=== PATIENT | female | born 1960 | race Caucasian/White ===

== ENCOUNTER 2016-08-11 13:47 | Emergency (ER) | payer BC, OTHER ==
[2016-08-11 16:28] LABS: ANION GAP 14 MEQ/L (8-16); BLOOD UREA NITROGEN 23 MG/DL (7-18); CALCIUM LEVEL 9.5 MG/DL (8.5-10.1); CARBON DIOXIDE LEVEL 21 MEQ/L (21-32); CHLORIDE LEVEL 102 MEQ/L (98-107); CREATININE FOR GFR 0.98 MG/DL (0.55-1.02); GLOMERULAR FILTRATION RATE > 60.0 (>51); GLUCOSE, FASTING 106 MG/DL (70-105); POTASSIUM SERUM 3.7 MEQ/L (3.5-5.1); SODIUM LEVEL 137 MEQ/L (136-145)
--- NOTE | 2016-08-11 16:51 | REP ---
Left upper extremity emergency duplex venous ultrasound: History: Left arm swelling, question venous thrombosis. Findings: The left internal jugular vein, left subclavian vein, axillary vein, brachial veins, cephalic and basilic veins are anechoic and compressible in the left upper extremity. Color flow imaging is homogeneous. Spectral Doppler interrogation is unremarkable. There is no evidence of left upper extremity venous thrombosis. Impression: Negative left upper extremity venous ultrasound. No evidence of venous thrombosis. Signed by Larry Morris MD 08/11/2016 05:03 P
[2016-08-11] MEDS ORDERED: CLINDAMYCIN 600 MG/50 ML PREMIX BAG As Ordered ONE (16:53)
[2016-08-11 17:14] LABS: BASO % 0.4 % (0.0-1.0); EOS % 0.2 % (0.0-3.0); LARGE UNSTAINED CELL # 0.1 K/mm3 (0.0-0.4); LARGE UNSTAINED CELL % 1.2 % (0.0-4.0); LYMPH # 0.7 K/mm3 (1.5-4.5); LYMPH % 8.1 % (24.0-44.0); MEAN CORPUSCULAR HEMOGLOBIN 32.2 pg (27.0-33.0); MEAN CORPUSCULAR HGB CONC 36.4 g/dl (32.0-36.5); MEAN CORPUSCULAR VOLUME 88.5 fl (80.0-96.0); MONO # 0.3 K/mm3 (0.0-0.8); MONO % 3.2 % (0.0-5.0); NEUTROPHILS # 7.1 K/mm3 (1.8-7.7); NEUTROPHILS % 86.9 % (36.0-66.0); PLATELET COUNT, AUTOMATED 191 k/mm3 (150-450); RED CELL DISTRIBUTION WIDTH 11.9 % (11.5-14.5); WHITE BLOOD COUNT 8.2 K/mm3 (4.0-10.0)
--- NOTE | 2016-08-11 17:58 | EDDOCDS ---
Physician Documentation [facility] Name: Shauna Casarez Age: 56 yrs Sex: Female : 1960 Arrival Date: 08/11/2016 Time: 13:47 Bed TR7 Private MD: Nusrat Lerner PA-C Disposition: 08/11/16 17:43 Discharged to Home/Self Care. Impression: Fever presenting with conditions classified elsewhere, Acute pharyngitis, unspecified, Cellulitis of left upper limb. - Condition is Stable. - Discharge Instructions: Cellulitis, Pharyngitis. - Prescriptions for Clindamycin HCl 300 mg Oral Capsule - take 1 capsule by ORAL route every 6 hours; 40 capsule. magic mouthwash Mucous Membrane Solution - as directed 5 milliliters by ORAL route 4 times per day As needed GARGLE, SWISH, SPIT. MAALOX, VISCOUS LIDOCAINE, LIQUID BENADRYL. 1:1:1; 237 milliliter. - Medication Reconciliation, Local Pharmacy Hours form. - Follow up: Emergency Department; When: As needed; Reason: Worsening of conditions. Follow up: Private Physician; When: 2 - 3 days; Reason: Wound/Symptom Recheck, Recheck today's complaints, Continuance of care. - Problem is new. - Symptoms have improved. Historical: - Allergies: no known allergies; - Home Meds: 1. Zoloft 50 mg Oral tab 1 tab once daily (Last dose: 08/10/2016 20:00) 2. Tylenol 325 mg Oral tab 2 tabs as needed (Last dose: 08/11/2016 13:30) - PMHx: Breast cancer; - PSHx: Appendectomy; Tonsillectomy; Mastectomy 1998; - Social history: Smoking status: Patient states former smoker of tobacco. No barriers to communication noted, The patient speaks fluent Welsh. - Family history: No immediate family members are acutely ill. - : The pt / caregiver states he / she is not on anticoagulants. Home medication list is obtained from the patient. - Exposure Risk Screening:: None identified. Vital Signs: 08/11 13:48 BP 92 / 64; Pulse 101; Resp 18 S; Temp 100.8(O); Pulse Ox 100% on R/A; Weight 74.84 kg gr2 / 164.99 lbs (R); Height 5 ft. 9 in. (175.26 cm) (R); Pain 8/10; 15:38 Temp 99.7(O); mdr 17:51 BP 115 / 77; Pulse 85; Resp 18; Temp 99.9(TE); Pulse Ox 100% on R/A; Pain 6/10; mdr 13:48 Body Mass Index 24.37 (74.84 kg, 175.26 cm) gr2 MDM: 14:01 Strep Screen, Nursing ordered. dt4 15:45 Financial registration complete. lg 15:46 IV Saline Lock ordered. dt4 15:46 NS 0.9% 1000 ml IV at bolus once ordered. dt4 15:46 CBC with Diff Ordered. EDMS 15:46 Basic Metabolic Profile Ordered. EDMS 15:46 Sed Rate Ordered. EDMS 15:46 CRP Ordered. EDMS 15:46 US Upper Extremity R/O DVT Ordered. EDMS 15:50 GATS (NEGATIVE STREP SCREEN) Ordered. EDMS 16:50 Clindamycin 600 mg IVPB once over 30 mins; dilute in 50mL of NS or D5W ordered. dt4 Administered Medications: 16:10 Drug: NS 0.9% 1000 ml [sodium chloride 0.9 % intravenous solution] Route: IV; Rate: srm bolus; Site: right hand; 16:59 Drug: Clindamycin 600 mg [clindamycin 600 mg/50 mL in 5 % dextrose intravenous dw piggyback] Route: IVPB; Infused Over: 30 mins; Site: right hand; Signatures: Dispatcher [employer] EDMS Dread Pollard RN RN [facility] Lashon Hunter, Alexis Reg Gianna Davis PA-C PA-C dt4 Alvaro Fraser RN RN mb9 Lizet Boykin RN srm MTDD
--- NOTE | 2016-08-11 17:58 | EDDOCDS ---
Nurse's Notes [facility] Name: Shauna Casarez Age: 56 yrs Sex: Female : 1960 Arrival Date: 08/11/2016 Time: 13:47 Bed TR7 Private MD: Nusrat Lerner PA-C Diagnosis: Fever presenting with conditions classified elsewhere;Acute pharyngitis, unspecified;Cellulitis of left upper limb Presentation: 08/11 13:51 Presenting complaint: Patient states: Multiple complaints, sore throat for 3-4 days, dwg also redness, pain and swelling to left arm from just above left elbow down to left wrist, for 2 days. Adult Sepsis Screening: The patient does not have new or worsening altered mentation. Patient's respiratory rate is less than 22. Systolic blood pressure is less than or equal to 100 (1 point). Patient has a qSOFA score of 1- Negative Sepsis Screen. Suicide/Homicide risk assessment- the patient denies having any suicidal and/or homicidal ideations and does not present with any other emotional, behavioral or mental health complaints. 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 Transition of care: patient was not received from another setting of care. 13:51 Acuity: JUNE Level 3 dwg 13:51 Method Of Arrival: Walkin/Carried/Asstd dwg Triage Assessment: 13:55 General: Appears in no apparent distress. Pain: Pain currently is 5 out of 10 on a pain dwg scale. HIV screening NA for this visit Offered previously. Historical: - Allergies: no known allergies; - Home Meds: 1. Zoloft 50 mg Oral tab 1 tab once daily (Last dose: 08/10/2016 20:00) 2. Tylenol 325 mg Oral tab 2 tabs as needed (Last dose: 08/11/2016 13:30) - PMHx: Breast cancer; - PSHx: Appendectomy; Tonsillectomy; Mastectomy 1998; - Social history: Smoking status: Patient states former smoker of tobacco. No barriers to communication noted, The patient speaks fluent Azeri. - Family history: No immediate family members are acutely ill. - : The pt / caregiver states he / she is not on anticoagulants. Home medication list is obtained from the patient. - Exposure Risk Screening:: None identified. Screenin:55 Screening information is obtained from the patient. Fall risk: No risks identified. mb9 Assistance ADL's: requires no assistance with activities of daily living. Abuse/DV Screen: The patient / caregiver reports he/she is: not in a situation that causes fear, pain or injury. Nutritional screening: No deficits noted. Advance Directives: There is no active DNR order. home support is adequate. Assessment: 16:03 General: Appears in no apparent distress, Behavior is appropriate for age, cooperative. srm Respiratory: No deficits noted. GI: No deficits noted. Musculoskeletal: Circulation, motion, and sensation intact Capillary refill < 3 seconds in left fingers redness and swelling to left forearm Signs and Symptoms of Compartment Syndrome:. Vital Signs: 13:48 BP 92 / 64; Pulse 101; Resp 18 S; Temp 100.8(O); Pulse Ox 100% on R/A; Weight 74.84 kg gr2 (R); Height 5 ft. 9 in. (175.26 cm) (R); Pain 8/10; 15:38 Temp 99.7(O); mdr 17:51 BP 115 / 77; Pulse 85; Resp 18; Temp 99.9(TE); Pulse Ox 100% on R/A; Pain 6/10; mdr 13:48 Body Mass Index 24.37 (74.84 kg, 175.26 cm) gr2 Vitals: 13:48 Log In Time: August 11, 2016 at 13:48. gr2 15:49 Strep Screen is obtained and tested: Negative, a GATSNEG culture is ordered in [facility] and sent. ED Course: 13:48 Patient visited by Suha Canseco. gr2 13:48 Nusrat Lerner is Private Physician. gr2 13:48 Patient moved to Waiting gr2 13:49 Patient visited by Suha Canseco. gr2 13:49 Patient moved to Pre RCE gr2 13:54 Triage Initiated dwg 15:14 Patient moved to Triage 3 mdr 15:30 Gianna Davis PA-C is PHCP. dt4 15:30 Eduardo Yi MD is Attending Physician. dt4 15:30 Patient visited by Gianna Davis PA-C. dt4 15:39 Patient visited by Nathan Deleon PCA. mdr 16:04 Patient visited by Lizet Boykin, CONNIE. srm 16:04 Patient moved to PR1 srm 16:04 Inserted saline lock: 20 gauge in right hand and blood collected. srm 16:04 CRP Sent. srm 16:04 Sed Rate Sent. srm 16:04 Basic Metabolic Profile Sent. srm 16:04 CBC with Diff Sent. srm 16:08 Patient moved to Ultrasound en 16:39 Patient moved to PD srm 16:55 Patient visited by Gianna Davis PA-C. dt4 17:27 US Upper Extremity R/O DVT Returned. EDMS 17:52 Patient visited by Nathan Deleon PCA. mdr 17:55 Patient moved to TR7 mb9 17:55 The patient / caregiver is instructed regarding the plan of care and ED course. mb9 17:55 Discontinued IV lock intact, bleeding controlled, pressure dressing applied, No mb9 redness/swelling at site. No procedures done that require assistance. Administered Medications: 16:10 Drug: NS 0.9% 1000 ml [sodium chloride 0.9 % intravenous solution] Route: IV; Rate: srm bolus; Site: right hand; 16:59 Drug: Clindamycin 600 mg [clindamycin 600 mg/50 mL in 5 % dextrose intravenous dwg piggyback] Route: IVPB; Infused Over: 30 mins; Site: right hand; Order Results: Lab Order: CBC with Diff; SPEC'M 08/11/16 16:01 Test: WHITE BLOOD COUNT; Value: 8.2; Range: 4.0-10.0; Units: K/mm3; Status: F Test: RED BLOOD COUNT; Value: 4.71; Range: 4.00-5.40; Units: M/mm3; Status: F Test: HEMOGLOBIN; Value: 15.1; Range: 12.0-16.0; Units: g/dl; Status: F Test: HEMATOCRIT; Value: 41.6; Range: 36.0-47.0; Units: %; Status: F Test: MEAN CORPUSCULAR VOLUME; Value: 88.5; Range: 80.0-96.0; Units: fl; Status: F Test: MEAN CORPUSCULAR HEMOGLOBIN; Value: 32.2; Range: 27.0-33.0; Units: pg; Status: F Test: MEAN CORPUSCULAR HGB CONC; Value: 36.4; Range: 32.0-36.5; Units: g/dl; Status: F Test: RED CELL DISTRIBUTION WIDTH; Value: 11.9; Range: 11.5-14.5; Units: %; Status: F Test: PLATELET COUNT, AUTOMATED; Value: 191; Range: 150-450; Units: k/mm3; Status: F Test: NEUTROPHILS %; Value: 86.9; Range: 36.0-66.0; Abnormal: Above high normal; Units: %; Status: F Test: LYMPH %; Value: 8.1; Range: 24.0-44.0; Abnormal: Below low normal; Units: %; Status: F Test: MONO %; Value: 3.2; Range: 0.0-5.0; Units: %; Status: F Test: EOS %; Value: 0.2; Range: 0.0-3.0; Units: %; Status: F Test: BASO %; Value: 0.4; Range: 0.0-1.0; Units: %; Status: F Test: LARGE UNSTAINED CELL %; Value: 1.2; Range: 0.0-4.0; Units: %; Status: F Test: NEUTROPHILS #; Value: 7.1; Range: 1.8-7.7; Units: K/mm3; Status: F Test: LYMPH #; Value: 0.7; Range: 1.5-4.5; Abnormal: Below low normal; Units: K/mm3; Status: F Test: MONO #; Value: 0.3; Range: 0.0-0.8; Units: K/mm3; Status: F Test: EOS #; Value: 0.0; Range: 0.0-0.50; Units: K/mm3; Status: F Test: BASO #; Value: 0.0; Range: 0.0-0.2; Units: K/mm3; Status: F Test: LARGE UNSTAINED CELL #; Value: 0.1; Range: 0.0-0.4; Units: K/mm3; Status: F Lab Order: Basic Metabolic Profile; SPEC'M 08/11/16 16:01 Test: GLUCOSE, FASTING; Value: 106; Range: 70-105; Abnormal: Above high normal; Units: MG/DL; Status: F Test: BLOOD UREA NITROGEN; Value: 23; Range: 7-18; Abnormal: Above high normal; Units: MG/DL; Status: F Test: CREATININE FOR GFR; Value: 0.98; Range: 0.55-1.02; Units: MG/DL; Status: F Test: GLOMERULAR FILTRATION RATE; Value: > 60.0; Range: >51; Status: F Test: SODIUM LEVEL; Value: 137; Range: 136-145; Units: MEQ/L; Status: F Test: POTASSIUM SERUM; Value: 3.7; Range: 3.5-5.1; Units: MEQ/L; Status: F Test: CHLORIDE LEVEL; Value: 102; Range: 98-107; Units: MEQ/L; Status: F Test: CARBON DIOXIDE LEVEL; Value: 21; Range: 21-32; Units: MEQ/L; Status: F Test: ANION GAP; Value: 14; Range: 8-16; Units: MEQ/L; Status: F Test: CALCIUM LEVEL; Value: 9.5; Range: 8.5-10.1; Units: MG/DL; Status: F Test Note: ; Units are mL/min/1.73 m2 Chronic Kidney Disease Staging per NKF: Stage I & II GFR >=60 Normal to Mildly Decreased Stage III GFR 30-59 Moderately Decreased Stage IV GFR 15-29 Severely Decreased Stage V GFR <15 Very Little GFR Left ESRD GFR <15 on IP LITIGATION PARALEGAL Lab Order: Sed Rate; SPEC'M 08/11/16 16:01 Test: ERYTHROCYTE SEDIMENTATION RATE; Range: 0-30; Units: mm/hr; Status: I Lab Order: CRP; SPEC'M 08/11/16 16:01 Test: C REACTIVE PROTEIN QUANTITATIV; Value: 16.90; Range: 0.00-0.30; Abnormal: Above high normal; Units: MG/DL; Status: F Radiology Order: US Upper Extremity R/O DVT Test: US Upper Extremity R/O DVT REASON FOR EXAMINATION: LEFT ARM SWELLING, ?DVT; Left upper extremity emergency duplex venous ultrasound:; ; History: Left arm swelling, question venous thrombosis.; ; Findings: The left internal jugular vein, left subclavian vein, axillary vein,; brachial veins, cephalic and basilic veins are anechoic and compressible in the; left upper extremity. Color flow imaging is homogeneous. Spectral Doppler; interrogation is unremarkable. There is no evidence of left upper extremity; venous thrombosis.; ; Impression:; ; Negative left upper extremity venous ultrasound. No evidence of venous; thrombosis.; ; ; Signed by; Larry Morris MD 08/11/2016 05:03 P; Outcome: 17:43 Discharge ordered by Provider. dt4 17:55 Discharge Assessment: Patient awake, alert and oriented x 3. No cognitive and/or mb9 functional deficits noted. Patient verbalized understanding of disposition instructions. patient administered narcotics - no. The following High Risk Discharge criteria are identified: None. Discharged to home ambulatory, with significant other. Condition: good Condition: stable Condition: improved. Discharge instructions given to patient, Instructed on discharge instructions, follow up and referral plans. medication usage, Demonstrated understanding of instructions, medications, Pt was receptive of discharge instructions/ teaching. Prescriptions given X 2. Ultrasound Study completed. Property :Personal belongings accompany Pt. 17:57 Patient left the ED. mb9 Signatures: Dispatcher [employer] EDMS Dread Pollard RN Lizet Coats RN RN [facility] Suha Canseco gr2 Gianna Davis, PA-C PA-C dt4 Alvaro Fraser,RN RN mb9 Amaris [place], ANTONINO DRAMATIC READER mdr MTDD
[2016-08-11 18:03] LABS: ERYTHROCYTE SEDIMENTATION RATE 26 mm/hr (0-30)
--- NOTE | 2016-08-13 18:58 | EDDOCDS ---
Physician Documentation [facility] Name: Shauna Casarez Age: 56 yrs Sex: Female : 1960 Arrival Date: 08/11/2016 Time: 13:47 Bed TR7 Private MD: Nusrat Lerner PA-C Disposition: 08/11/16 17:43 Discharged to Home/Self Care. Impression: Fever presenting with conditions classified elsewhere, Acute pharyngitis, unspecified, Cellulitis of left upper limb. - Condition is Stable. - Discharge Instructions: Cellulitis, Pharyngitis. - Prescriptions for Clindamycin HCl 300 mg Oral Capsule - take 1 capsule by ORAL route every 6 hours; 40 capsule. magic mouthwash Mucous Membrane Solution - as directed 5 milliliters by ORAL route 4 times per day As needed GARGLE, SWISH, SPIT. MAALOX, VISCOUS LIDOCAINE, LIQUID BENADRYL. 1:1:1; 237 milliliter. - Medication Reconciliation, Local Pharmacy Hours form. - Follow up: Emergency Department; When: As needed; Reason: Worsening of conditions. Follow up: Private Physician; When: 2 - 3 days; Reason: Wound/Symptom Recheck, Recheck today's complaints, Continuance of care. - Problem is new. - Symptoms have improved. Historical: - Allergies: no known allergies; - Home Meds: 1. Zoloft 50 mg Oral tab 1 tab once daily (Last dose: 08/10/2016 20:00) 2. Tylenol 325 mg Oral tab 2 tabs as needed (Last dose: 08/11/2016 13:30) - PMHx: Breast cancer; - PSHx: Appendectomy; Tonsillectomy; Mastectomy 1998; - Social history: Smoking status: Patient states former smoker of tobacco. No barriers to communication noted, The patient speaks fluent Romansh. - Family history: No immediate family members are acutely ill. - : The pt / caregiver states he / she is not on anticoagulants. Home medication list is obtained from the patient. - Exposure Risk Screening:: None identified. Vital Signs: 08/11 13:48 BP 92 / 64; Pulse 101; Resp 18 S; Temp 100.8(O); Pulse Ox 100% on R/A; Weight 74.84 kg gr2 / 164.99 lbs (R); Height 5 ft. 9 in. (175.26 cm) (R); Pain 8/10; 15:38 Temp 99.7(O); mdr 17:51 BP 115 / 77; Pulse 85; Resp 18; Temp 99.9(TE); Pulse Ox 100% on R/A; Pain 6/10; mdr 13:48 Body Mass Index 24.37 (74.84 kg, 175.26 cm) gr2 MDM: 14:01 Strep Screen, Nursing ordered. dt4 15:45 Financial registration complete. lg 15:46 IV Saline Lock ordered. dt4 15:46 NS 0.9% 1000 ml IV at bolus once ordered. dt4 15:46 CBC with Diff Ordered. EDMS 15:46 Basic Metabolic Profile Ordered. EDMS 15:46 Sed Rate Ordered. EDMS 15:46 CRP Ordered. EDMS 15:46 US Upper Extremity R/O DVT Ordered. EDMS 15:50 GATS (NEGATIVE STREP SCREEN) Ordered. EDMS 16:50 Clindamycin 600 mg IVPB once over 30 mins; dilute in 50mL of NS or D5W ordered. dt4 08/12 10:09 T-Sheet-- Draft Copy was scanned into [employer] and attached to record. gb 10:10 Radiology Report was scanned into [employer] and attached to record. 13:49 [facility] Payment Agreement was scanned into [employer] and attached to record. lg Administered Medications: 08/11 16:10 Drug: NS 0.9% 1000 ml [sodium chloride 0.9 % intravenous solution] Route: IV; Rate: srm bolus; Site: right hand; 16:59 Drug: Clindamycin 600 mg [clindamycin 600 mg/50 mL in 5 % dextrose intravenous [facility] piggyback] Route: IVPB; Infused Over: 30 mins; Site: right hand; Signatures: Dispatcher [employer] EDDread Shrestha RN RN dwg Cristy Prakash, Reg Reg gb Lashon Hunter, Reg Reg lg Gianna Davis, YOUSUF PAMary dt4 Alvaro Fraser RN RN mb9 Lizet Boykin RN srm The chart was reviewed and I authenticate all verbal orders and agree with the evaluation and treatment provided.Attachments: 08/12 10:09 T-Sheet-- Draft Copy gb 13:49 [facility] Payment Agreement lg Chart Complete MTDD
--- NOTE | 2016-08-13 18:58 | EDDOCDS ---
Physician Documentation [facility] Name: Shauna Casarez Age: 56 yrs Sex: Female : 1960 Arrival Date: 08/11/2016 Time: 13:47 Bed TR7 Private MD: Nusrat Lerner PA-C Disposition: 08/11/16 17:43 Discharged to Home/Self Care. Impression: Fever presenting with conditions classified elsewhere, Acute pharyngitis, unspecified, Cellulitis of left upper limb. - Condition is Stable. - Discharge Instructions: Cellulitis, Pharyngitis. - Prescriptions for Clindamycin HCl 300 mg Oral Capsule - take 1 capsule by ORAL route every 6 hours; 40 capsule. magic mouthwash Mucous Membrane Solution - as directed 5 milliliters by ORAL route 4 times per day As needed GARGLE, SWISH, SPIT. MAALOX, VISCOUS LIDOCAINE, LIQUID BENADRYL. 1:1:1; 237 milliliter. - Medication Reconciliation, Local Pharmacy Hours form. - Follow up: Emergency Department; When: As needed; Reason: Worsening of conditions. Follow up: Private Physician; When: 2 - 3 days; Reason: Wound/Symptom Recheck, Recheck today's complaints, Continuance of care. - Problem is new. - Symptoms have improved. Historical: - Allergies: no known allergies; - Home Meds: 1. Zoloft 50 mg Oral tab 1 tab once daily (Last dose: 08/10/2016 20:00) 2. Tylenol 325 mg Oral tab 2 tabs as needed (Last dose: 08/11/2016 13:30) - PMHx: Breast cancer; - PSHx: Appendectomy; Tonsillectomy; Mastectomy 1998; - Social history: Smoking status: Patient states former smoker of tobacco. No barriers to communication noted, The patient speaks fluent Welsh. - Family history: No immediate family members are acutely ill. - : The pt / caregiver states he / she is not on anticoagulants. Home medication list is obtained from the patient. - Exposure Risk Screening:: None identified. Vital Signs: 08/11 13:48 BP 92 / 64; Pulse 101; Resp 18 S; Temp 100.8(O); Pulse Ox 100% on R/A; Weight 74.84 kg gr2 / 164.99 lbs (R); Height 5 ft. 9 in. (175.26 cm) (R); Pain 8/10; 15:38 Temp 99.7(O); mdr 17:51 BP 115 / 77; Pulse 85; Resp 18; Temp 99.9(TE); Pulse Ox 100% on R/A; Pain 6/10; mdr 13:48 Body Mass Index 24.37 (74.84 kg, 175.26 cm) gr2 MDM: 14:01 Strep Screen, Nursing ordered. dt4 15:45 Financial registration complete. lg 15:46 IV Saline Lock ordered. dt4 15:46 NS 0.9% 1000 ml IV at bolus once ordered. dt4 15:46 CBC with Diff Ordered. EDMS 15:46 Basic Metabolic Profile Ordered. EDMS 15:46 Sed Rate Ordered. EDMS 15:46 CRP Ordered. EDMS 15:46 US Upper Extremity R/O DVT Ordered. EDMS 15:50 GATS (NEGATIVE STREP SCREEN) Ordered. EDMS 16:50 Clindamycin 600 mg IVPB once over 30 mins; dilute in 50mL of NS or D5W ordered. dt4 08/12 10:09 T-Sheet-- Draft Copy was scanned into [employer] and attached to record. gb 10:10 Radiology Report was scanned into [employer] and attached to record. 13:49 [facility] Payment Agreement was scanned into [employer] and attached to record. lg Administered Medications: 08/11 16:10 Drug: NS 0.9% 1000 ml [sodium chloride 0.9 % intravenous solution] Route: IV; Rate: srm bolus; Site: right hand; 16:59 Drug: Clindamycin 600 mg [clindamycin 600 mg/50 mL in 5 % dextrose intravenous [facility] piggyback] Route: IVPB; Infused Over: 30 mins; Site: right hand; Signatures: Dispatcher [employer] EDDread Shrestha RN RN dwg Cristy Prakash, Reg Reg gb Lashon Hunter, Reg Reg lg Gianna Davis, YOUSUF PAMary dt4 Alvaro Fraser RN RN mb9 Lizet Boykin RN srm The chart was reviewed and I authenticate all verbal orders and agree with the evaluation and treatment provided.Attachments: 08/12 10:09 T-Sheet-- Draft Copy gb 13:49 [facility] Payment Agreement lg Chart Complete MTDD
--- NOTE | 2016-08-13 18:58 | EDDOCDS ---
Nurse's Notes [facility] Name: Shauna Casarez Age: 56 yrs Sex: Female : 1960 Arrival Date: 08/11/2016 Time: 13:47 Bed TR7 Private MD: Nusrat Lerner PA-C Diagnosis: Fever presenting with conditions classified elsewhere;Acute pharyngitis, unspecified;Cellulitis of left upper limb Presentation: 08/11 13:51 Presenting complaint: Patient states: Multiple complaints, sore throat for 3-4 days, dwg also redness, pain and swelling to left arm from just above left elbow down to left wrist, for 2 days. Adult Sepsis Screening: The patient does not have new or worsening altered mentation. Patient's respiratory rate is less than 22. Systolic blood pressure is less than or equal to 100 (1 point). Patient has a qSOFA score of 1- Negative Sepsis Screen. Suicide/Homicide risk assessment- the patient denies having any suicidal and/or homicidal ideations and does not present with any other emotional, behavioral or mental health complaints. Status: Patient is not a information services vice president or dependent. Transition of care: patient was not received from another setting of care. 13:51 Acuity: JUNE Level 3 dwg 13:51 Method Of Arrival: Walkin/Carried/Asstd dwg Triage Assessment: 13:55 General: Appears in no apparent distress. Pain: Pain currently is 5 out of 10 on a pain dwg scale. HIV screening NA for this visit Offered previously. Historical: - Allergies: no known allergies; - Home Meds: 1. Zoloft 50 mg Oral tab 1 tab once daily (Last dose: 08/10/2016 20:00) 2. Tylenol 325 mg Oral tab 2 tabs as needed (Last dose: 08/11/2016 13:30) - PMHx: Breast cancer; - PSHx: Appendectomy; Tonsillectomy; Mastectomy 1998; - Social history: Smoking status: Patient states former smoker of tobacco. No barriers to communication noted, The patient speaks fluent Vietnamese. - Family history: No immediate family members are acutely ill. - : The pt / caregiver states he / she is not on anticoagulants. Home medication list is obtained from the patient. - Exposure Risk Screening:: None identified. Screenin:55 Screening information is obtained from the patient. Fall risk: No risks identified. mb9 Assistance ADL's: requires no assistance with activities of daily living. Abuse/DV Screen: The patient / caregiver reports he/she is: not in a situation that causes fear, pain or injury. Nutritional screening: No deficits noted. Advance Directives: There is no active DNR order. home support is adequate. Assessment: 16:03 General: Appears in no apparent distress, Behavior is appropriate for age, cooperative. srm Respiratory: No deficits noted. GI: No deficits noted. Musculoskeletal: Circulation, motion, and sensation intact Capillary refill < 3 seconds in left fingers redness and swelling to left forearm Signs and Symptoms of Compartment Syndrome:. Vital Signs: 13:48 BP 92 / 64; Pulse 101; Resp 18 S; Temp 100.8(O); Pulse Ox 100% on R/A; Weight 74.84 kg gr2 (R); Height 5 ft. 9 in. (175.26 cm) (R); Pain 8/10; 15:38 Temp 99.7(O); mdr 17:51 BP 115 / 77; Pulse 85; Resp 18; Temp 99.9(TE); Pulse Ox 100% on R/A; Pain 6/10; mdr 13:48 Body Mass Index 24.37 (74.84 kg, 175.26 cm) gr2 Vitals: 13:48 Log In Time: August 11, 2016 at 13:48. gr2 15:49 Strep Screen is obtained and tested: Negative, a GATSNEG culture is ordered in [facility] and sent. ED Course: 13:48 Patient visited by Suha Canseco. gr2 13:48 Nusrat Lerner is Private Physician. gr2 13:48 Patient moved to Waiting gr2 13:49 Patient visited by Suha Canseco. gr2 13:49 Patient moved to Pre RCE gr2 13:54 Triage Initiated dwg 15:14 Patient moved to Triage 3 mdr 15:30 Gianna Davis PA-C is PHCP. dt4 15:30 Eduardo Yi MD is Attending Physician. dt4 15:30 Patient visited by Gianna Davis PA-C. dt4 15:39 Patient visited by Nathan Deleon PCA. mdr 16:04 Patient visited by Lizet Boykin, CONNIE. srm 16:04 Patient moved to PR1 srm 16:04 Inserted saline lock: 20 gauge in right hand and blood collected. srm 16:04 CRP Sent. srm 16:04 Sed Rate Sent. srm 16:04 Basic Metabolic Profile Sent. srm 16:04 CBC with Diff Sent. srm 16:08 Patient moved to Ultrasound en 16:39 Patient moved to PD srm 16:55 Patient visited by Gianna Davis PA-C. dt4 17:27 US Upper Extremity R/O DVT Returned. EDMS 17:52 Patient visited by Nathan Deleon, ANTONINO. mdr 17:55 Patient moved to TR7 mb9 17:55 The patient / caregiver is instructed regarding the plan of care and ED course. mb9 17:55 Discontinued IV lock intact, bleeding controlled, pressure dressing applied, No mb9 redness/swelling at site. No procedures done that require assistance. 08/12 10:09 T-Sheet-- Draft Copy was scanned into [employer] and attached to record. gb 10:10 Radiology Report was scanned into [employer] and attached to record. gb 13:48 Patient name changed from Shauna\S\A\S\[place]\S\ to Shauna\S\Jenni\S\[place]. EDMS 13:49 [facility] Payment Agreement was scanned into [employer] and attached to record. lg Administered Medications: 08/11 16:10 Drug: NS 0.9% 1000 ml [sodium chloride 0.9 % intravenous solution] Route: IV; Rate: srm bolus; Site: right hand; 16:59 Drug: Clindamycin 600 mg [clindamycin 600 mg/50 mL in 5 % dextrose intravenous dwg piggyback] Route: IVPB; Infused Over: 30 mins; Site: right hand; Order Results: Lab Order: CBC with Diff; SPEC'M 08/11/16 16:01 Test: WHITE BLOOD COUNT; Value: 8.2; Range: 4.0-10.0; Units: K/mm3; Status: F Test: RED BLOOD COUNT; Value: 4.71; Range: 4.00-5.40; Units: M/mm3; Status: F Test: HEMOGLOBIN; Value: 15.1; Range: 12.0-16.0; Units: g/dl; Status: F Test: HEMATOCRIT; Value: 41.6; Range: 36.0-47.0; Units: %; Status: F Test: MEAN CORPUSCULAR VOLUME; Value: 88.5; Range: 80.0-96.0; Units: fl; Status: F Test: MEAN CORPUSCULAR HEMOGLOBIN; Value: 32.2; Range: 27.0-33.0; Units: pg; Status: F Test: MEAN CORPUSCULAR HGB CONC; Value: 36.4; Range: 32.0-36.5; Units: g/dl; Status: F Test: RED CELL DISTRIBUTION WIDTH; Value: 11.9; Range: 11.5-14.5; Units: %; Status: F Test: PLATELET COUNT, AUTOMATED; Value: 191; Range: 150-450; Units: k/mm3; Status: F Test: NEUTROPHILS %; Value: 86.9; Range: 36.0-66.0; Abnormal: Above high normal; Units: %; Status: F Test: LYMPH %; Value: 8.1; Range: 24.0-44.0; Abnormal: Below low normal; Units: %; Status: F Test: MONO %; Value: 3.2; Range: 0.0-5.0; Units: %; Status: F Test: EOS %; Value: 0.2; Range: 0.0-3.0; Units: %; Status: F Test: BASO %; Value: 0.4; Range: 0.0-1.0; Units: %; Status: F Test: LARGE UNSTAINED CELL %; Value: 1.2; Range: 0.0-4.0; Units: %; Status: F Test: NEUTROPHILS #; Value: 7.1; Range: 1.8-7.7; Units: K/mm3; Status: F Test: LYMPH #; Value: 0.7; Range: 1.5-4.5; Abnormal: Below low normal; Units: K/mm3; Status: F Test: MONO #; Value: 0.3; Range: 0.0-0.8; Units: K/mm3; Status: F Test: EOS #; Value: 0.0; Range: 0.0-0.50; Units: K/mm3; Status: F Test: BASO #; Value: 0.0; Range: 0.0-0.2; Units: K/mm3; Status: F Test: LARGE UNSTAINED CELL #; Value: 0.1; Range: 0.0-0.4; Units: K/mm3; Status: F Lab Order: Basic Metabolic Profile; SPEC'08/11/16 16:01 Test: GLUCOSE, FASTING; Value: 106; Range: 70-105; Abnormal: Above high normal; Units: MG/DL; Status: F Test: BLOOD UREA NITROGEN; Value: 23; Range: 7-18; Abnormal: Above high normal; Units: MG/DL; Status: F Test: CREATININE FOR GFR; Value: 0.98; Range: 0.55-1.02; Units: MG/DL; Status: F Test: GLOMERULAR FILTRATION RATE; Value: > 60.0; Range: >51; Status: F Test: SODIUM LEVEL; Value: 137; Range: 136-145; Units: MEQ/L; Status: F Test: POTASSIUM SERUM; Value: 3.7; Range: 3.5-5.1; Units: MEQ/L; Status: F Test: CHLORIDE LEVEL; Value: 102; Range: 98-107; Units: MEQ/L; Status: F Test: CARBON DIOXIDE LEVEL; Value: 21; Range: 21-32; Units: MEQ/L; Status: F Test: ANION GAP; Value: 14; Range: 8-16; Units: MEQ/L; Status: F Test: CALCIUM LEVEL; Value: 9.5; Range: 8.5-10.1; Units: MG/DL; Status: F Test Note: ; Units are mL/min/1.73 m2 Chronic Kidney Disease Staging per NKF: Stage I & II GFR >=60 Normal to Mildly Decreased Stage III GFR 30-59 Moderately Decreased Stage IV GFR 15-29 Severely Decreased Stage V GFR <15 Very Little GFR Left ESRD GFR <15 on [employer] Lab Order: Sed Rate; SPEC'08/11/16 16:01 Test: ERYTHROCYTE SEDIMENTATION RATE; Value: 26; Range: 0-30; Units: mm/hr; Status: F Lab Order: CRP; SPEC'08/11/16 16:01 Test: C REACTIVE PROTEIN QUANTITATIV; Value: 16.90; Range: 0.00-0.30; Abnormal: Above high normal; Units: MG/DL; Status: F Lab Order: GATS (NEGATIVE STREP SCREEN); SPEC'M 08/11/16 15:43 Test: GATS CULTURE (NEG STREP SCR); Value: GATS RESULT POSITIVE FOR STREP PYOGENES (GROUP A); Abnormal: Abnormal; Status: F Test: GATS CULTURE (NEG STREP SCR); Value: ORGANISM 1: STREPTOCOCCUS PYOGENES GRP A; Status: F Test: GATS CULTURE (NEG STREP SCR); Value: STREPTOCOCCUS PYOGENES GRP A; Status: F Test: GATS CULTURE (NEG STREP SCR); Value: QUANTITY OF GROWTH HEAVY; Status: F Radiology Order: US Upper Extremity R/O DVT Test: US Upper Extremity R/O DVT REASON FOR EXAMINATION: LEFT ARM SWELLING, ?DVT; Left upper extremity emergency duplex venous ultrasound:; ; History: Left arm swelling, question venous thrombosis.; ; Findings: The left internal jugular vein, left subclavian vein, axillary vein,; brachial veins, cephalic and basilic veins are anechoic and compressible in the; left upper extremity. Color flow imaging is homogeneous. Spectral Doppler; interrogation is unremarkable. There is no evidence of left upper extremity; venous thrombosis.; ; Impression:; ; Negative left upper extremity venous ultrasound. No evidence of venous; thrombosis.; ; ; Signed by; Larry Morris MD 08/11/2016 05:03 P; Outcome: 17:43 Discharge ordered by Provider. dt4 17:55 Discharge Assessment: Patient awake, alert and oriented x 3. No cognitive and/or mb9 functional deficits noted. Patient verbalized understanding of disposition instructions. patient administered narcotics - no. The following High Risk Discharge criteria are identified: None. Discharged to home ambulatory, with significant other. Condition: good Condition: stable Condition: improved. Discharge instructions given to patient, Instructed on discharge instructions, follow up and referral plans. medication usage, Demonstrated understanding of instructions, medications, Pt was receptive of discharge instructions/ teaching. Prescriptions given X 2. Ultrasound Study completed. Property :Personal belongings accompany Pt. 17:57 Patient left the ED. mb9 Signatures: Dispatcher [employer] EDDread Shrestha RN RN dwg Michelson, Staci, RN RN Cox Monettomar, Cristy, Reg Reg gb Elsa, Aname, Reg Reg lg Suha Canseco gr2 Gianna Davis PA-C PA-C dt4 Alvaro Fraser,RN RN mb9 Amaris [place], INSTRUCTIONAL AIDE INSTRUCTIONAL AIDE mdr Chart Complete MTDD
== END 2016-08-11 17:57 | disposition home or self-care (01) ==
LOC: M ED 13:47
DX: R50.9 Fever, unspecified (principal); J02.9 Acute pharyngitis, unspecified; L03.114 Cellulitis of left upper limb; Z85.3 Personal history of malignant neoplasm of breast; Z90.10 Acquired absence of unspecified breast and nipple; Z87.891 Personal history of nicotine dependence; Z79.899 Other long term (current) drug therapy

== ENCOUNTER → 2016-12-26 | Outpatient (CLI) | payer BC, OTHER ==
[2016-12-26 16:52] LABS: MEAN CORPUSCULAR HEMOGLOBIN 30.5 pg (27.0-33.0); MEAN CORPUSCULAR HGB CONC 33.5 g/dl (32.0-36.5); MEAN CORPUSCULAR VOLUME 90.9 fl (80.0-96.0); RED CELL DISTRIBUTION WIDTH 12.5 % (11.5-14.5); WHITE BLOOD COUNT 5.3 K/mm3 (4.0-10.0)
[2016-12-26 17:12] LABS: ALBUMIN 3.8 GM/DL (3.2-5.2); ALBUMIN/GLOBULIN RATIO 1.31 (1.00-1.93); ALKALINE PHOSPHATASE 70 U/L (45-117); ALT/SGPT 28 U/L (12-78); ANION GAP 5 MEQ/L (8-16); AST/SGOT 22 U/L (15-37); BILIRUBIN,TOTAL 0.5 MG/DL (0.2-1.0); BLOOD UREA NITROGEN 16 MG/DL (7-18); CARBON DIOXIDE LEVEL 30 MEQ/L (21-32); CHLORIDE LEVEL 106 MEQ/L (98-107); CREATININE FOR GFR 0.74 MG/DL (0.55-1.02); GLOMERULAR FILTRATION RATE > 60.0 (>51); GLUCOSE, FASTING 137 MG/DL (70-105); POTASSIUM SERUM 4.1 MEQ/L (3.5-5.1); SODIUM LEVEL 141 MEQ/L (136-145); TOTAL PROTEIN 6.7 GM/DL (6.4-8.2)
== END ==
LOC: M ADAMS 12:56
PROVIDERS: ATTEND Physician Assistant
DX: R00.2 Palpitations (principal); Z85.3 Personal history of malignant neoplasm of breast

== ENCOUNTER → 2017-07-08 | Outpatient (REF) | payer BC, OTHER | LOC: M LAB REF 12:17 → M LABDRWAD 12:17 | PROVIDERS: ATTEND Physician Assistant | DX: N39.0 Urinary tract infection, site not specified (principal) ==

== ENCOUNTER → 2018-03-01 | Outpatient (REF) | payer OTHER ==
[2018-03-01 15:02] LABS: HEMOGLOBIN 13.4 g/dl (12.0-15.5); MEAN CORPUSCULAR HEMOGLOBIN 31.2 pg (27.0-33.0); MEAN CORPUSCULAR HGB CONC 34.4 g/dl (32.0-36.5); MEAN CORPUSCULAR VOLUME 90.7 fl (80.0-96.0); PLATELET COUNT, AUTOMATED 270 10^3/uL (150-450); RED CELL DISTRIBUTION WIDTH 12.3 % (11.5-14.5); WHITE BLOOD COUNT 6.9 10^3/uL (4.0-10.0)
[2018-03-01 15:07] LABS: ALBUMIN 3.8 GM/DL (3.2-5.2); ALBUMIN/GLOBULIN RATIO 1.23 (1.00-1.93); ALKALINE PHOSPHATASE 60 U/L (45-117); ALT/SGPT 26 U/L (12-78); ANION GAP 7 MEQ/L (8-16); AST/SGOT 21 U/L (7-37); BILIRUBIN,TOTAL 0.6 MG/DL (0.2-1.0); BLOOD UREA NITROGEN 21 MG/DL (7-18); CARBON DIOXIDE LEVEL 28 MEQ/L (21-32); CHLORIDE LEVEL 105 MEQ/L (98-107); CREATININE FOR GFR 0.74 MG/DL (0.55-1.30); GLOMERULAR FILTRATION RATE > 60.0 (>51); GLUCOSE, FASTING 78 MG/DL (70-100); SODIUM LEVEL 140 MEQ/L (136-145); TOTAL PROTEIN 6.9 GM/DL (6.4-8.2)
== END ==
LOC: M SFHCLACO 09:55
DX: Z85.3 Personal history of malignant neoplasm of breast (principal); F41.9 Anxiety disorder, unspecified; J30.89 Other allergic rhinitis
CPT/HCPCS: 80053

== ENCOUNTER → 2018-04-01 | Outpatient (REF) | payer OTHER | LOC: M SFHCLACO 10:54 | DX: Z12.4 Encounter for screening for malignant neoplasm of cervix (principal); N95.2 Postmenopausal atrophic vaginitis | CPT/HCPCS: 87070 ==

== ENCOUNTER → 2018-06-21 | Outpatient (CLI) | payer BC | LOC: M WHC 15:54 | DX: Z12.31 Encounter for screening mammogram for malignant neoplasm of breast (principal); Z85.3 Personal history of malignant neoplasm of breast; N95.1 Menopausal and female climacteric states; Z92.3 Personal history of irradiation; Z90.12 Acquired absence of left breast and nipple; Z98.890 Other specified postprocedural states | CPT/HCPCS: 77067 ==

== ENCOUNTER → 2018-09-23 | Outpatient (REF) | payer OTHER | LOC: M LAB REF 12:39 | PROVIDERS: ATTEND Physician Assistant Medical | DX: N39.0 Urinary tract infection, site not specified (principal) ==

== ENCOUNTER → 2019-12-19 | Outpatient (CLI) | payer BC ==
--- NOTE | 2019-12-19 10:04 | REPMRS ---
Patient History The patient states she had a clinical breast exam in Jul 2019.Family history of breast cancer at age 50 or over in maternal grandmother, prostate cancer at age 50 or over in father. Reconstruction of the left breast, 1999. Mastectomy of the left breast, 1999. Radiation therapy of the left breast, 1999. Took hormonal contraceptives for 5 years. Took tamoxifen for 5 years. Digital Woman Screen Mammo: December 19, 2019 - Exam #: [id number] Bilateral CC and MLO view(s) were taken. Technologist: Sybil Reyes, Technologist Prior study comparison: June 21, 2018, bilateral digital woman screen mammo performed at [facility]. January 19, 2017, bilateral digital woman screen mammo, performed at [facility]. June 19, 2015, digital woman screen mammo performed at [facility]. FINDINGS: The breast tissue is heterogeneously dense. This may lower the sensitivity of mammography. The Volpara volumetric breast density category is: C. Stable post-treatment changes are noted on the left. There is a moderate amount of heterogeneously dense fibroglandular tissue which is fairly symmetric. There is no interval development of dominant mass, architectural distortion, or grouped microcalcification typical of malignancy. There has been no change in the appearance of the mammogram from the prior studies. 3-D tomosynthesis shows no additional findings. Assessment: BI-RADS/ACR category 2 mammogram. Benign Findings. Recommendation Routine screening mammogram of both breasts in 1 year (for women over age 40). This mammogram was interpreted with the aid of an FDA-approved computer-aided dectection system. Electronically Signed By: Alvarado Morris MD 12/19/19 [id number]
== END ==
LOC: M WHC 09:33
PROVIDERS: ATTEND Physician Assistant
DX: Z12.31 Encounter for screening mammogram for malignant neoplasm of breast (principal); Z85.3 Personal history of malignant neoplasm of breast; Z80.3 Family history of malignant neoplasm of breast; Z90.12 Acquired absence of left breast and nipple; Z92.3 Personal history of irradiation

== ENCOUNTER → 2019-12-23 | Outpatient (CLI) | payer BC | LOC: M LABSMTC 11:36 | PROVIDERS: ATTEND Family Medicine | DX: Z03.818 Encounter for observation for suspected exposure to other biological agents ruled out (principal); Z11.59 Encounter for screening for other viral diseases | CPT/HCPCS: C9803; U0003 ==

== ENCOUNTER → 2020-08-13 | Outpatient (REF) | payer OTHER | LOC: M SFHCADAM 10:05 | PROVIDERS: ATTEND Physician Assistant | DX: Z01.419 Encounter for gynecological examination (general) (routine) without abnormal findings (principal); Z12.4 Encounter for screening for malignant neoplasm of cervix ==

== ENCOUNTER → 2021-03-14 | Outpatient (CLI) | payer BC ==
--- NOTE | 2021-03-14 14:59 | DEXAMM ---
INDICATION: M81.0 AGE RELATED OSTEOPOROSIS. COMPARISON: 06/21/2018 as well as other prior exams. TECHNIQUE: Bone density was measured using dual-energy x-ray absorptiometry (DEXA). FINDINGS: AP SPINE L1-L4 BMD 0.925 g/cm2 Young Adult T-Score -2.2 Age Matched Z-Score -0.8. LT FEMUR, TOTAL BMD 0.750 g/cm2 Young Adult T-Score -2.0 Age Matched Z-Score -1.0. LT NECK BMD 0.701 g/cm2 Young Adult T-Score -2.4 Age Matched Z-Score -1.1. RT FEMUR, TOTAL BMD 0.723 g/cm2 Young Adult T-Score -2.3 Age Matched Z-Score -1.2. RT NECK BMD 0.659 g/cm2 Young Adult T-Score -2.7 Age Matched Z-Score -1.4. IMPRESSION: There is low bone density of the spine. There is low bone density of the left hip. There is osteoporosis of the right hip. The density of the spine has decreased 4.4% since the initial exam on 03/23/2008. The density of the spine decreased 0.4% since most recent exam on 06/21/2018. The density of the left hip has decreased 5.1% since initial exam on 03/23/2008. The density of the left hip has decreased 1.2% since most recent exam on 06/21/2018. The density of the right hip has decreased 8.8% since the initial exam on 03/23/2008. The density of the right hip has decreased 2.2% since the most recent exam on 06/21/2018. FOLLOW-UP: Recommendation for the next bone density exam: 2 years. <Electronically signed by Dread Casey > 03/14/21 [id number]
--- NOTE | 2021-03-14 15:40 | REPMRS ---
Patient History The patient states she had a clinical breast exam in November 2020. Family history of breast cancer at age 50 or over in maternal grandmother, prostate cancer at age 50 or over in father. Reconstruction of the left breast, 1999. Mastectomy of the left breast, 1999. Radiation therapy of the left breast, 1999. Took hormonal contraceptives for 5 years. Took tamoxifen for 5 years. Patient states no breast complaints today. Patient has signed MRS History Sheet. Digital Woman Screen Mammo: March 14, 2021 - Exam #: [id number] Bilateral CC and MLO view(s) were taken. Technologist: Emani Romo, Technologist Prior study comparison: December 19, 2019, bilateral digital woman screen mammo performed at [facility]. June 21, 2018, bilateral digital woman screen mammo performed at [facility]. FINDINGS: The breast tissue is heterogeneously dense. This may lower the sensitivity of mammography. Screening. Digital screening (2D) mammography was performed bilaterally in the CC and MLO projections. Additionally, breast tomosynthesis (3D mammography) was performed bilaterally in the CC and MLO projections. Todays exam was compared to the prior exam/exams. By history, the patient has no complaints of a palpable breast abnormality or other significant breast complaints. The breasts are unchanged in size and shape.Once again, dense heterogenous nodular fibroglandular elements are seen in a stable appearing pattern but to such a degree that the sensitivity of the mammogram in detecting cancer is somewhat decreased. There are no luna-soft tissue densities or spiculated masses. There is no internal architectural distortion. There are no suspicious luna-calcific clusters. Skin thickening or nipple retraction is not present. IMPRESSION: BI-RADS Category 2- Benign Findings. There is no evidence of malignant alteration of the breasts. Followup examination recommended in one year. The Volpara volumetric breast density category is C, the breasts are heterogenously dense which may obscure small masses. This mammogram was read with the assistance of [employer],an FDA approved computer aided detection system for mammography. Negative x-ray reports should not delay surgical consultation if a dominant or clinically suspicious mass is present. Due to the density of the breasts or Tyrer Cuzick score of 20% or greater, MRI/whole breast screening ultrasound is warranted. Not all breast cancers can be identified by mammography. Therefore, we recommend that you continue to perform regular breast self-examination and physical examination and then promptly contact your physician of any concerns or changes. Adenosis and dense breasts may obscure an underlying neoplasm. Assessment: BI-RADS/ACR category 2 mammogram. Benign Findings. Recommendation Routine screening mammogram of both breasts in 1 year. Electronically Signed By: Jagdish Teixeira DO 03/14/21 [id number]
== END ==
LOC: M WHC 13:45
PROVIDERS: ATTEND Physician Assistant
DX: Z12.31 Encounter for screening mammogram for malignant neoplasm of breast (principal); M81.0 Age-related osteoporosis without current pathological fracture; Z80.3 Family history of malignant neoplasm of breast; Z85.3 Personal history of malignant neoplasm of breast; Z90.12 Acquired absence of left breast and nipple; Z92.0 Personal history of contraception; Z92.29 Personal history of other drug therapy

== ENCOUNTER → 2021-07-06 | Outpatient (REF) | payer BC | LOC: M LAB REF 07-05 13:33 | PROVIDERS: ATTEND Nurse Practitioner Family | DX: N39.0 Urinary tract infection, site not specified (principal) ==

== ENCOUNTER → 2022-04-10 | Outpatient (CLI) | payer BC, OTHER | LOC: M WHC 12:06 | PROVIDERS: ATTEND Physician Assistant | DX: Z12.31 Encounter for screening mammogram for malignant neoplasm of breast (principal); R92.2 Inconclusive mammogram; Z85.3 Personal history of malignant neoplasm of breast ==

== ENCOUNTER → 2022-05-19 | Outpatient (CLI) | payer BC, OTHER | LOC: M WHC 12:33 | PROVIDERS: ATTEND Physician Assistant | DX: R92.8 Other abnormal and inconclusive findings on diagnostic imaging of breast (principal) | CPT/HCPCS: 77065; G0279 ==

== ENCOUNTER → 2022-07-24 | Outpatient (REF) | payer OTHER ==
[2022-07-24 17:16] LABS: BASO # 0.1 10^3/uL (0.0-0.2); BASO % 0.7 % (0.0-1.0); EOS # 0.1 10^3/uL (0.0-0.5); EOS % 1.2 % (0.0-3.0); HEMATOCRIT 41.3 % (36.0-47.0); LYMPH # 2.7 10^3/uL (1.5-5.0); LYMPH % 39.9 % (24.0-44.0); MEAN CORPUSCULAR HGB CONC 33.9 g/dl (32.0-36.5); MEAN CORPUSCULAR VOLUME 91.6 fl (80.0-96.0); MONO # 0.5 10^3/uL (0.0-0.8); MONO % 7.7 % (2.0-8.0); NEUTROPHILS # 3.5 10^3/uL (1.5-8.5); NEUTROPHILS % 50.4 % (36.0-66.0); PLATELET COUNT, AUTOMATED 293 10^3/uL (150-450); RED BLOOD COUNT 4.51 10^6/uL (4.00-5.40); WHITE BLOOD COUNT 6.9 10^3/uL (4.0-10.0)
[2022-07-24 17:32] LABS: ALBUMIN 4.1 G/DL (3.2-5.2); ALKALINE PHOSPHATASE 57 U/L (46-116); ALT/SGPT 11 U/L (7.0-40); AST/SGOT 25 U/L (<34); BILIRUBIN,TOTAL 1.2 MG/DL (0.3-1.2); BLOOD UREA NITROGEN 16 MG/DL (9-23); CALCIUM LEVEL 9.5 MG/DL (8.3-10.6); CARBON DIOXIDE LEVEL 28 MMOL/L (20-31); CHLORIDE LEVEL 101 MMOL/L (98-107); CHOLESTEROL LEVEL 215 MG/DL (<200); CHOLESTEROL RISK RATIO 2.77 (<5); CREATININE FOR GFR 0.82 MG/DL (0.55-1.30); GLOMERULAR FILTRATION RATE > 60.0 (>45); GLUCOSE, FASTING 90 MG/DL (74-106); HDL CHOLESTEROL 77.6 MG/DL (>40); LDL CHOLESTEROL 124.2 MG/DL (<100); NON-HDL-C 137 MG/DL; POTASSIUM SERUM 4.1 MMOL/L (3.5-5.1); SODIUM LEVEL 138 MMOL/L (136-145); TOTAL PROTEIN 6.9 G/DL (5.7-8.2); TRIGLYCERIDES LEVEL 66 MG/DL (<150)
[2022-07-24 17:33] LABS: FREE T4 1.22 NG/DL (0.89-1.76); TOTAL 25(OH) VITAMIN D 50.5 NG/ML (20.0-100.0)
== END ==
LOC: M SFHCADAM 13:10
PROVIDERS: ATTEND Physician Assistant
DX: M81.0 Age-related osteoporosis without current pathological fracture (principal); Z13.220 Encounter for screening for lipoid disorders; Z13.1 Encounter for screening for diabetes mellitus; F41.9 Anxiety disorder, unspecified; Z85.3 Personal history of malignant neoplasm of breast

== ENCOUNTER → 2023-05-04 | Outpatient (CLI) | payer MEDICARE, BC, OTHER | LOC: M WHC 13:37 | PROVIDERS: ATTEND Physician Assistant | DX: Z12.31 Encounter for screening mammogram for malignant neoplasm of breast (principal) ==

== ENCOUNTER → 2023-07-30 | Outpatient (REF) | payer OTHER, MEDICARE | LOC: M SFHCADAM 15:57 | PROVIDERS: ATTEND Physician Assistant | DX: Z53.9 Procedure and treatment not carried out, unspecified reason (principal) ==

== ENCOUNTER → 2024-03-31 | Outpatient (CLI) | payer BC, MEDICARE | LOC: M WHC 18:03 | PROVIDERS: ATTEND Physician Assistant | DX: Z85.3 Personal history of malignant neoplasm of breast (principal); Z53.9 Procedure and treatment not carried out, unspecified reason ==

== ENCOUNTER → 2024-06-27 | Outpatient (CLI) | payer MEDICARE, BC | LOC: M WHC 13:01 | PROVIDERS: ATTEND Physician Assistant | DX: Z12.31 Encounter for screening mammogram for malignant neoplasm of breast (principal); R92.331 Mammographic heterogeneous density, right breast; R92.312 Mammographic fatty tissue density, left breast; Z85.3 Personal history of malignant neoplasm of breast; Z90.12 Acquired absence of left breast and nipple ==

== ENCOUNTER → 2024-07-28 | Outpatient (REF) | payer BC, MEDICARE ==
[2024-07-28 17:40] LABS: BASO % 0.5 % (0.0-1.0); EOS # 0.1 10^3/uL (0.0-0.5); EOS % 1.4 % (0.0-3.0); HEMATOCRIT 42.8 % (36.0-47.0); HEMOGLOBIN 14.5 g/dl (12.0-15.5); LYMPH # 2.4 10^3/uL (1.5-5.0); LYMPH % 32.7 % (24.0-44.0); MEAN CORPUSCULAR HGB CONC 33.9 g/dl (32.0-36.5); MEAN CORPUSCULAR VOLUME 91.6 fl (80.0-96.0); MONO # 0.6 10^3/uL (0.0-0.8); MONO % 8.3 % (2.0-8.0); NEUTROPHILS # 4.2 10^3/uL (1.5-8.5); NEUTROPHILS % 56.8 % (36.0-66.0); PLATELET COUNT, AUTOMATED 263 10^3/uL (150-450); RED BLOOD COUNT 4.67 10^6/uL (4.00-5.40); WHITE BLOOD COUNT 7.4 10^3/uL (4.0-10.0)
[2024-07-28 17:43] LABS: ALKALINE PHOSPHATASE 68 U/L (35-104); ALT/SGPT 17 U/L (7.0-40); AST/SGOT 21 U/L (<34); BILIRUBIN,TOTAL 0.9 MG/DL (0.3-1.2); BLOOD UREA NITROGEN 17 MG/DL (9-23); CALCIUM LEVEL 9.6 MG/DL (8.3-10.6); CARBON DIOXIDE LEVEL 28 MMOL/L (20-31); CHLORIDE LEVEL 105 MMOL/L (98-107); CHOLESTEROL LEVEL 212 MG/DL (<200); CHOLESTEROL RISK RATIO 3.12 (<5); CREATININE FOR GFR 0.74 MG/DL (0.55-1.30); GLOMERULAR FILTRATION RATE > 60.0 (>45); GLUCOSE, FASTING 89 MG/DL (74-106); HDL CHOLESTEROL 67.9 MG/DL (>40); LDL CHOLESTEROL 128.7 MG/DL (<100); NON-HDL-C 144.1 MG/DL; POTASSIUM SERUM 4.7 MMOL/L (3.5-5.1); SODIUM LEVEL 141 MMOL/L (136-145); TOTAL PROTEIN 6.9 G/DL (5.7-8.2); TRIGLYCERIDES LEVEL 77 MG/DL (<150)
== END ==
LOC: M SFHCADAM 14:17
PROVIDERS: ATTEND Physician Assistant
DX: Z00.00 Encounter for general adult medical examination without abnormal findings (principal); F41.9 Anxiety disorder, unspecified; M81.0 Age-related osteoporosis without current pathological fracture; Z12.11 Encounter for screening for malignant neoplasm of colon; Z13.220 Encounter for screening for lipoid disorders; Z13.1 Encounter for screening for diabetes mellitus; Z85.3 Personal history of malignant neoplasm of breast

== ENCOUNTER → 2024-12-08 | Outpatient (REF) | payer MEDICARE ==
[2024-12-12 12:07] LABS: HPV APTIMA Not Detected (Not Detected)
== END ==
LOC: M SFHCADAM 16:39
PROVIDERS: ATTEND Physician Assistant
DX: Z85.3 Personal history of malignant neoplasm of breast (principal)
CPT/HCPCS: 87070; 87077; 87186; 87624; G0123